=== PATIENT | male | born 1990 | race Caucasian/White ===

== ENCOUNTER 2020-01-02 19:11 | Emergency (ER) | payer BC, OTHER ==
--- NOTE | 2020-01-02 20:01 | ER Document Report ---
ED Medical Screen (RME) - General Chief Complaint: Bloody Stools Stated Complaint: BLOOD IN STOOL/ABDOMINAL PAIN Time Seen by Provider: 01/02/20 19:55 Mode of Arrival: Ambulatory Information source: Patient Notes: 29-year-old male presented to ED for blood in his stools. He states he has had right upper quadrant pain for about a week but he has had some soft stools and he has developed some diarrhea today and now is just plain. Blood coming out. He does have a picture of this bright red blood. He states he does not have any hemorrhoids. 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 He states he has not had any nausea or vomiting no fevers. States he does not smoke drink or use any illicit drugs. He is alert oriented respirations regular nonlabored speaking in full sentences. I have greeted and performed a rapid initial assessment of this patient. A comprehensive ED assessment and evaluation of the patient, analysis of test results and completion of medical decision making process will be conducted by an additional ED providers. Physical Exam - Vital signs Vitals: Temp Pulse Resp BP Pulse Ox 99.0 F 97 16 135/81 H 98 01/02/20 19:25 01/02/20 19:25 01/02/20 19:25 01/02/20 19:25 01/02/20 19:25 Course - Vital Signs Vital signs: Temp Pulse Resp BP Pulse Ox 99.0 F 97 16 135/81 H 98 01/02/20 19:25 01/02/20 19:25 01/02/20 19:25 01/02/20 19:25 01/02/20 19:25
[2020-01-02 21:02] LABS: ABSOLUTE BASOPHILS # (AUTO) 0.1 10^3/uL (0.0-0.2); ABSOLUTE EOSINOPHILS # (AUTO) 0.2 10^3/uL (0.0-0.6); ABSOLUTE LYMPHOCYTES (AUTO) 1.4 10^3/uL (0.5-4.7); ABSOLUTE NEUT (AUTO) 7.4 10^3/uL (1.7-8.2); BASOPHILS % (AUTO) 0.7 % (0-2); EOSINOPHILS % (AUTO) 1.7 % (0-6); HEMATOCRIT 46.6 % (37.9-51.0); HEMOGLOBIN 16.4 g/dL (13.5-17.0); LYMPHOCYTES % (AUTO) 14.2 % (13-45); MEAN CORPUSCULAR HEMOGLOBIN 29.5 pg (27.0-33.4); MEAN CORPUSCULAR HGB CONC 35.2 g/dL (32.0-36.0); MEAN CORPUSCULAR VOLUME 84 fl (80-97); MONOCYTES % (AUTO) 9.5 % (3-13); PLATELET COUNT 243 10^3/uL (150-450); RED BLOOD COUNT 5.56 10^6/uL (4.35-5.55); RED CELL DISTRIBUTION WIDTH 13.1 % (11.5-14.0); SEGMENTED NEUTROPHILS % (AUTO) 73.9 % (42-78); TOTAL CELLS COUNTED % (AUTO) 100 %
[2020-01-02 21:05] LABS: APPEARANCE,URINE CLEAR; BILIRUBIN,URINE NEGATIVE (NEGATIVE); COLOR,URINE YELLOW; GLUCOSE, URINE NEGATIVE (NEGATIVE); KETONES,URINE NEGATIVE (NEGATIVE); LEUKOCYTE ESTERASE,URINE NEGATIVE (NEGATIVE); NITRITE,URINE NEGATIVE (NEGATIVE); PROTEIN,URINE NEGATIVE (NEGATIVE); URINE SPECIFIC GRAVITY 1.018; UROBILINOGEN,URINE NEGATIVE mg/dL (<2.0)
[2020-01-02 21:20] LABS: ALBUMIN 4.7 g/dL (3.5-5.0); ALKALINE PHOSPHATASE 78 U/L (38-126); ANION GAP 9 (5-19); ASPARTATE AMINO TRANSFERASE 32 U/L (17-59); BILIRUBIN,DIRECT 0.3 mg/dL (0.0-0.4); BILIRUBIN,TOTAL 0.9 mg/dL (0.2-1.3); BLOOD UREA NITROGEN 17 mg/dL (7-20); CALCIUM 9.4 mg/dL (8.4-10.2); CARBON DIOXIDE 28 mmol/L (22-30); CHLORIDE 101 mmol/L (98-107); GLUCOSE 90 mg/dL (75-110); POTASSIUM 4.5 mmol/L (3.6-5.0); TOTAL PROTEIN 8.2 g/dL (6.3-8.2)
--- NOTE | 2020-01-03 01:17 | ER Document Report ---
ED General - General Chief Complaint: Bloody Stools Stated Complaint: BLOOD IN STOOL/ABDOMINAL PAIN Time Seen by Provider: 01/02/20 19:55 Primary Care Provider: [facility] [Provider Group] - Follow up as needed Mode of Arrival: Ambulatory - HPI Notes: 29-year-old male presents with bloody diarrhea. Patient states that for the past week he has been having some right-sided abdominal pain, no diarrhea. He has had some decrease in appetite, no vomiting. He states however today he had onset of diarrhea with blood mixed into it. This is occurred several times toda y. No fever or chills. He denies recently consuming any raw meat or raw seafood. States he really does not eat any meat. No one else at home is experiencing same symptoms. He denies any history of Crohn's or ulcerative colitis, also denies family history of these. No changes in urination or blood in urine. Patient states he recently finished a Medrol Dosepak for back pain. - Related Data Allergies/Adverse Reactions: No Known Allergies Allergy (Unverified 01/02/20 20:08) Past Medical History - General Information source: Patient - Social History Smoking Status: Never Smoker Chew tobacco use (# tins/day): No Frequency of alcohol use: None Drug Abuse: None Family History: Reviewed & Not Pertinent Review of Systems - Review of Systems Constitutional: denies: Fever EENT: No symptoms reported Cardiovascular: denies: Chest pain Respiratory: denies: Short of breath Gastrointestinal: See HPI Genitourinary: denies: Dysuria, Hematuria Musculoskeletal: denies: Joint swelling, Muscle pain Skin: No symptoms reported Neurological/Psychological: No symptoms reported Physical Exam - Vital signs Vitals: Temp Pulse Resp BP Pulse Ox 99.0 F 97 16 135/81 H 98 01/02/20 19:25 01/02/20 19:25 01/02/20 19:25 01/02/20 19:25 01/02/20 19:25 - General General appearance: Appears well In distress: None - HEENT Head: Normocephalic, Atraumatic Eyes: No: Scleral icterus Extraocular movements intact: Yes Pupils: PERRL - Respiratory Breath sounds: Normal - Cardiovascular Rhythm: Regular Heart sounds: Normal auscultation - Abdominal Inspection: Normal Bowel sounds: Normal Tenderness: Nontender - Rectal Hemorrhoids: None Notes: Brown stool, no lory blood, Hemoccult faintly positive - Extremities General lower extremity: No: Edema - Neurological Neuro grossly intact: Yes Cognition: Normal Orientation: AAOx4 - Psychological Associated symptoms: Normal affect - Skin Skin Temperature: Warm Skin Color: negative: Jaundiced Course - Re-evaluation Re-evalutation: 29-year-old male with right-sided all pain x1 week, now onset today of bloody stools. He has a picture on his phone, it does show blood mixed with stool. He is well-appearing, nontoxic, afebrile. His abdomen is soft and without focal area of tenderness. He is not edematous. His vitals are stable. I discussed with him that I suspect he has a colitis, possible foodborne in origin, viral a possibility as well. Given his age I discussed that this potentially could represent onset of Crohn's versus ulcerative colitis. Will order CT abdomen to assess. He had a laboratory evaluation from triage, he has no leukocytosis, no acute anemia, electrolytes are within normal limits, creatinine is 1.2 which could be from poor oral intake, there is no elevation of BUN and creatinine is within normal limits. Urine does not suggest UTI. He has submitted a stool sample for culture. 01/03/20 03:36 CT abdomen has resulted, reviewed, per radiology he has some colitis present. Fits with his clinical picture. I updated patient on the results. He continues to be well-appearing. He feels comfortable going home. Discussed that this is typically self-limited. Encouraged him to please establish with a primary care doctor. Will be called if stool cultures are positive for pathogenic bacteria. Return precautions given, patient stable at time of discharge. - Vital Signs Vital signs: Temp Pulse Resp BP Pulse Ox 98.7 F 84 16 138/80 H 100 01/03/20 04:20 01/03/20 04:20 01/03/20 04:20 01/03/20 04:20 01/03/20 04:20 - Laboratory Result Diagrams: 01/02/20 20:36 01/02/20 20:36 Laboratory results interpreted by me: 01/02/20 01/02/20 20:36 20:36 RBC 5.56 H Urine Blood SMALL H - Diagnostic Test Radiology reviewed: Image reviewed, Reports reviewed Discharge - Discharge Clinical Impression: Colitis Condition: Stable Disposition: HOME, SELF-CARE Additional Instructions: Patient her to drink plenty of fluids. Please try to establish with a primary care doctor, resources have been provided. Return to the emergency department for fever, inability to eat or drink, worsening bleeding, change of skin color, or any other concerning symptoms. Referrals: [facility] [Provider Group] - Follow up as needed
[2020-01-03] MEDS ORDERED: RINGERS SOLUTION,LACTATED 1,000 ML IV ONE (01:36)
--- NOTE | 2020-01-03 03:09 | RADIOLOGY REPORT (SQ) ---
COMPLETED DATE/TME: 01/03/2020 01:35 EXAM: CT abdomen and pelvis with contrast. INDICATION: Abdominal pain, acute. Bloody stools TECHNIQUE: Contiguous axial CT images of the abdomen and pelvis. Intravenous contrast: Present. Oral contrast: Absent. DLP 1912 mGy-cm. This exam was performed according to our departmental dose-optimization program, which includes automated exposure control, adjustment of the mA and/or kV according to patient size and/or use of iterative reconstruction technique. COMPARISON: None. FINDINGS: Lower chest: Partially imaged. Lung bases: Unremarkable. Cardiac apex: Unremarkable. Solid abdominal viscera: Liver: Mild fatty infiltration. Gallbladder: Unremarkable. Pancreas: Unremarkable. Spleen: Unremarkable. Adrenal glands: Unremarkable. Right kidney: No hydronephrosis. Left kidney: No hydronephrosis. Urinary bladder: Unremarkable. Abdominal aorta: Unremarkable. Peritoneal: Free fluid: None. Free air: None. Other: No pathologic sized lymph nodes in the upper abdomen. Bowel: Stomach: Unremarkable. Small bowel: Unremarkable. Appendix: Unremarkable. Colon: There is thickening of the ascending colon and to a lesser degree the descending and sigmoid colon. Prostate: Unremarkable. Bones: Unremarkable. IMPRESSION: Thickening of the ascending colon and to a lesser degree the descending and sigmoid colon, likely due to colitis.
[2020-01-03 04:24] VITALS: BP 138/80
== END 2020-01-03 04:24 | disposition home or self-care (01) ==
LOC: ER 19:11
DX: K52.9 Noninfective gastroenteritis and colitis, unspecified (principal); K92.1 Melena; R63.0 Anorexia; R10.9 Unspecified abdominal pain
CPT/HCPCS: 99285; 96360; 86900; 86901; 36415; 87045; 87086; 89055; 87205; 86850; 83690; 85025; 80053; 81001; 74177; J7120

== ENCOUNTER 2020-01-29 08:03 | Day surgery (SDC) | payer BC ==
[~2020-01-29 08:03] MED LIST: PROPOFOL INJ 200 MG/20 ML VIAL IV ONE
--- NOTE | 2020-01-29 09:49 | Operative Report ---
Operative Report DATE OF SURGERY: 01/29/20 Operative Report: The risk, benefits and alternatives of the procedure including the risk of bleeding, perforation requiring surgery have been explained to the patient in detail and informed consent has been obtained. Patient is taken back to the endoscopy suite and placed in a left lateral decubital position. Timeout was called. Propofol medication is administered. Rectal examination is done which did not reveal any masses, tears or fissures. An Olympus videoscope was introduced into the patient's rectum. Scope was then carefully advanced all the way to the cecum. Cecum was identified by the usual anatomical landmarks including the ileocecal valve as well as the appendiceal office. Photodocumentation is obtained. Scope was then sequentially pulled back via the various segments of the colon including the ascending colon, hepatic flexure, transverse colon, splenic flexure, descending colon finding to the rectosigmoid portions of the colon. Retroflexion maneuver is performed. The risks benefits and alternatives of the procedure explained to the patient in detail and informed consent is obtained.A GIF Olympus video scope was inserted into the patient's mouth and hypopharynx, the esophagus is identified intubated and insufflated, the scope was then advanced through the esophagus stomach and duodenum, retroflexion maneuver is done, the esophagus stomach and first and second portions of the duodenum examined PREOPERATIVE DIAGNOSIS: Blood in stool. Epigastric pain POSTOPERATIVE DIAGNOSIS: Esophageal rings and furrows suggestive of eosinophilic esophagitis. Gastritis status post biopsy. Duodenal bulb inflammation. Right colon inflammation status post biopsy OPERATION: Colonoscopy with biopsy. EGD with biopsy SURGEON: JESUSITA PARSONS ANESTHESIA: LMAC TISSUE REMOVED OR ALTERED: As noted above. COMPLICATIONS: None. ESTIMATED BLOOD LOSS: None. INTRAOPERATIVE FINDINGS: As noted above. PROCEDURE: Patient tolerated the procedure well. No immediate postprocedure complications are noted. Patient is discharged in good condition. Discharge date 01/29/2020. Discharge diet: Regular. Discharge activity: Regular. 2 to 3-week follow-up to discuss findings. Patient is instructed to call the office or proceed to the emergency room should there be any further problems or questions. Wait on the pathology.
[2020-01-29 10:26] VITALS: BP 122/80
== END 2020-01-29 10:17 | disposition home or self-care (01) ==
LOC: END 08:03
PROVIDERS: ATTEND Internal Medicine Gastroenterology
DX: K22.2 Esophageal obstruction (principal); K29.50 Unspecified chronic gastritis without bleeding; K29.80 Duodenitis without bleeding; K52.9 Noninfective gastroenteritis and colitis, unspecified; Z03.818 Encounter for observation for suspected exposure to other biological agents ruled out
CPT/HCPCS: 43239; 45380; 88305 ×2; 00813; U0003; J2704; C9803; 813; 87635